=== PATIENT | male | born 1940 | race Caucasian/White ===

== ENCOUNTER 2022-03-19 11:20 | Emergency (ER) | payer OTHER, MEDICARE ==
[2022-03-19] MEDS ORDERED: Ketorolac Tromethamine 30 MG/ML VIAL ONE (14:26)
[2022-03-19 15:18] LABS: Carbon Dioxide 29 mmol/L (23-31); Chloride 94 mmol/L (98-107); Potassium 4.7 mmol/L (3.5-5.1); Sodium 133 mmol/L (136-145)
[2022-03-19 15:20] LABS: ALT (SGPT) 28 U/L (8-55); AST (SGOT) 32 U/L (5-34); Albumin 4.2 g/dL (3.4-4.8); Alkaline Phosphatase 220 U/L (40-110); Anion Gap 15 mmol/L (10-20); BUN (Urea Nitrogen) 66 mg/dL (8.4-25.7); Bilirubin, Total 0.7 mg/dL (0.2-1.2); Calc. Creatinine Clearance 0 mL/min (70-130); Calcium 10.1 mg/dL (7.8-10.44); Globulin 3.6 g/dL (2.4-3.5); Glucose 205 mg/dL (83-110); Protein, Total 7.8 g/dL (5.8-8.1)
[2022-03-19 15:45] LABS: #Basophils 0.1 10x3/uL (0.0-0.2); #Eosinphils 0.2 10x3/uL (0.0-0.5); %Basophils 0.6 % (0.0-2.0); %Eosinophils 2.3 % (0.0-6.0); %Lymphocytes 15.2 % (18.0-47.0); %Monocytes 11.3 % (0.0-10.0); %Neutrophils 70.4 % (40.0-75.0); Hemoglobin 13.8 g/dL (13.5-17.5); Mean Corpuscular HGB CONC 32.9 g/dL (32.0-36.0); Mean Corpuscular Hemoglobin 30.9 pg (27.0-33.0); Mean Corpuscular Volume 93.9 fl (81.2-95.1); Mean Platelet Volume 10.5 fl (7.4-10.4); Platelet Count 157 10x3/uL (150-450); RBC Distribution Width 13.1 % (11.5-14.5); Red Blood Cell (RBC) Count 4.46 10x6/uL (4.32-5.72); White Blood Cell (WBC) Count 8.6 10x3/uL (3.5-10.5)
[2022-03-19] MEDS ORDERED: HYDROcodone/Acetaminophen 10/325 mg Tablet ONE (16:34)
[2022-03-19] MEDS ORDERED: Boostrix 0.5 ML (Tdap) VIAL ONE (16:34)
== END 2022-03-19 17:45 | disposition home or self-care (01) ==
LOC: CSHERS 11:20
DX: S80.811A Abrasion, right lower leg, initial encounter (principal); L03.115 Cellulitis of right lower limb; I10 Essential (primary) hypertension; E11.9 Type 2 diabetes mellitus without complications; E78.5 Hyperlipidemia, unspecified; W01.10XA Fall on same level from slipping, tripping and stumbling with subsequent striking against unspecified object, initial encounter; Y93.01 Activity, walking, marching and hiking; Z23 Encounter for immunization
CPT/HCPCS: 80053; 85025; 90471; 90715; 96372; J1885

== ENCOUNTER 2022-03-30 09:08 | Outpatient (CLI) | payer MEDICARE | END 2022-03-30 09:09 | disposition home or self-care (01) | LOC: CSHWCC 09:08 | PROVIDERS: ATTEND Nurse Practitioner Family | DX: S81.801D Unspecified open wound, right lower leg, subsequent encounter (principal); R60.0 Localized edema | CPT/HCPCS: 11042; 97139; G0463; 99203 ==

== ENCOUNTER 2022-04-06 09:10 | Outpatient (CLI) | payer MEDICARE | END 2022-04-06 09:11 | disposition home or self-care (01) | LOC: CSHWCC 09:10 | PROVIDERS: ATTEND Nurse Practitioner Family | DX: S81.801D Unspecified open wound, right lower leg, subsequent encounter (principal) | CPT/HCPCS: 11042 ==

== ENCOUNTER 2022-05-01 09:49 | Outpatient (CLI) | payer MEDICARE | END 2022-05-01 09:50 | disposition home or self-care (01) | LOC: CSHWCC 09:49 | PROVIDERS: ATTEND Nurse Practitioner Family | DX: S81.801D Unspecified open wound, right lower leg, subsequent encounter (principal); R60.0 Localized edema | CPT/HCPCS: 97139; G0463; 99212 ==

== ENCOUNTER 2022-09-19 14:05 | Emergency (ER) | payer MEDICARE ==
[~2022-09-19 14:05] MED LIST: Iopamidol 300 61% 100 ML VIAL FS ONE
[2022-09-19] MEDS ORDERED: Morphine 4 MG/ML VIAL ONE ×2 (14:23→15:55)
[2022-09-19 14:50] LABS: #Basophils 0.1 10x3/uL (0.0-0.2); #Eosinphils 0.2 10x3/uL (0.0-0.5); #Monocytes 0.9 10x3/uL (0.0-1.1); #Neutrophils 5.5 10x3/uL (1.5-8.4); %Basophils 0.6 % (0.0-2.0); %Eosinophils 1.9 % (0.0-6.0); %Lymphocytes 17.3 % (18.0-47.0); %Monocytes 10.7 % (0.0-10.0); %Neutrophils 69.1 % (40.0-75.0); Hemoglobin 13.9 g/dL (13.5-17.5); Mean Corpuscular HGB CONC 33.3 g/dL (32.0-36.0); Mean Corpuscular Hemoglobin 31.3 pg (27.0-33.0); Mean Corpuscular Volume 93.9 fl (81.2-95.1); Mean Platelet Volume 10.4 fl (7.4-10.4); Platelet Count 156 10x3/uL (150-450); RBC Distribution Width 13.3 % (11.5-14.5); Red Blood Cell (RBC) Count 4.44 10x6/uL (4.32-5.72); White Blood Cell (WBC) Count 7.9 10x3/uL (3.5-10.5)
[2022-09-19 15:03] LABS: INR-International Normal Ratio 0.9; PTT 23.9 sec (22.0-33.0); Prothrombin Time 9.9 sec (9.5-12.1)
[2022-09-19 15:07] LABS: ALT (SGPT) 62 U/L (8-55); AST (SGOT) 36 U/L (5-34); Albumin 4.2 g/dL (3.4-4.8); Alcohol Less than 10 mg/dL (Less than 10); Alkaline Phosphatase 218 U/L (40-110); Anion Gap 13 mmol/L (10-20); BUN (Urea Nitrogen) 49 mg/dL (8.4-25.7); Bilirubin, Total 0.7 mg/dL (0.2-1.2); Calc. Creatinine Clearance 0 mL/min (70-130); Calcium 9.8 mg/dL (7.8-10.44); Carbon Dioxide 26 mmol/L (23-31); Chloride 102 mmol/L (98-107); Estimated GFR 24; Glucose 204 mg/dL (83-110); Protein, Total 7.2 g/dL (5.8-8.1); Sodium 136 mmol/L (136-145)
[2022-09-19] MEDS ORDERED: HYDROcodone/Acetaminophen 5/325 mg Tablet ONE (18:23)
== END 2022-09-19 19:00 | disposition home or self-care (01) ==
LOC: CSHERS 14:05
DX: S22.42XA Multiple fractures of ribs, left side, initial encounter for closed fracture (principal); S27.321A Contusion of lung, unilateral, initial encounter; E11.9 Type 2 diabetes mellitus without complications; I10 Essential (primary) hypertension; E78.5 Hyperlipidemia, unspecified; W17.89XA Other fall from one level to another, initial encounter
CPT/HCPCS: 36415; 71260; 74177; 80053; 80307; 85025; 85610; 85730; 96374; 96376; J2270; Q9967

== ENCOUNTER 2022-09-25 11:30 | Emergency (ER) | payer MEDICARE ==
[2022-09-25] MEDS ORDERED: Ondansetron PF 4 MG/2 ML Vial ONE (13:41)
[2022-09-25] MEDS ORDERED: Morphine 4 MG/ML VIAL ONE (13:41)
[2022-09-25] MEDS ORDERED: Mineral Oil ENEMA PR SCH (13:45)
[2022-09-25] MEDS ORDERED: Morphine 2 MG/ML VIAL ONE (17:28)
== END 2022-09-25 18:10 | disposition home or self-care (01) ==
LOC: CSHERS 11:30
DX: K59.00 Constipation, unspecified (principal); E11.9 Type 2 diabetes mellitus without complications; I10 Essential (primary) hypertension; E78.5 Hyperlipidemia, unspecified; Z95.0 Presence of cardiac pacemaker
CPT/HCPCS: 74022; J2270; 96374; 96375; 96376; J2405